=== PATIENT | male | born 1945 | race Caucasian/White ===

== ENCOUNTER → 2024-01-12 07:15 | Outpatient (REF) | payer MEDICARE, BC, SELFPAY | LOC: RAD 07:15 | PROVIDERS: ATTENDING PHYSICIAN Specialist; FAMILY PHYSICIAN Internal Medicine | DX: R31.0 Gross hematuria (principal) | CPT/HCPCS: 74178; Q9967 ==

== ENCOUNTER → 2024-01-19 15:05 | Outpatient (REF) | payer MEDICARE, BC, SELFPAY | LOC: CLAB 15:05 | PROVIDERS: ATTENDING PHYSICIAN Specialist | DX: R31.0 Gross hematuria (principal) | CPT/HCPCS: 88112 ==